=== PATIENT | male | born 1970 | race Hispanic/Latino ===

== ENCOUNTER 2017-07-29 12:19 | Day surgery (SDC) | payer MEDICARE ==
--- NOTE | 2017-07-29 14:00 | Anesthesia Consultation ---
Anesthesia Consult and Med Hx Date of service: 07/29/17 - Airway Anesthetic Teeth Evaluation: Good ROM Head & Neck: Adequate Mental/Hyoid Distance: Adequate Mallampati Class: Class II Intubation Access Assessment: Probably Good - Pulmonary Exam CTA: Yes - Cardiac Exam Cardiac Exam: RRR - Pre-Operative Health Status ASA Pre-Surgery Classification: ASA2 Proposed Anesthetic Plan: General - Pulmonary Hx Smoking: No Hx Sleep Apnea: No (ESTELITA PRE SCREEN HIGH RISK) - Cardiovascular System Hx Hypertension: Yes (X 1 YR) - Central Nervous System Hx Back Pain: Yes (BACK PAIN WITH PAIN/WEAKNESS KHADAR LEGS) - Endocrine Hx Renal Disease: No Hx Hypothyroidism: No - Other Systems Hx Cancer: No
[2017-07-29] MEDS ORDERED: DILAUDID IV PRN (14:01)
[2017-07-29] MEDS ORDERED: ZOFRAN IV PRN (14:01)
--- NOTE | 2017-07-29 14:01 | Anesthesia Day of Surgery ---
Anesthesia Day of Surgery - Day of Surgery Patient Examined: Yes Patient H&P Reviewed: Yes Patient is NPO: Yes
[2017-07-29] MEDS ORDERED: SUBLIMAZE ONE ×2 (14:14→15:37)
[2017-07-29] MEDS ORDERED: DIPRIVAN 10 MG/ML IV ONE (14:15)
[2017-07-29] MEDS ORDERED: ANCEF/STERILE WATER 2 GM/20 ML IV NR (14:17)
[2017-07-29] MEDS ORDERED: ZEMURON IV ONE (14:31)
[2017-07-29] MEDS ORDERED: XYLOCAINE MPF 2% ONE (14:31)
[2017-07-29] MEDS ORDERED: PEPCID IV NR (15:00)
[2017-07-29] MEDS ORDERED: LACTATED RINGERS 1,000 ML IV SCH (15:00)
[2017-07-29] MEDS ORDERED: VERSED IV NR (15:00)
[2017-07-29] MEDS ORDERED: ZOFRAN ONE (15:16)
[2017-07-29] MEDS ORDERED: ROBINUL ONE ×2 (15:16)
[2017-07-29] MEDS ORDERED: NEOSTIGMINE ONE (15:16)
[2017-07-29] MEDS ORDERED: WATER FOR IRRIG STERILE IR ONE (15:27)
[2017-07-29] MEDS ORDERED: OMNIPAQUE (300 MG) IR ONE (15:27)
[2017-07-29] MEDS ORDERED: BREVIBLOC IV ONE (15:46)
--- NOTE | 2017-07-29 15:54 | Short Stay Summary ---
Short Stay Documentation Date of service: 07/29/17 - History H&P: obtained from office - Allergies and Medications Current Medications: Allergies aspirin Allergy (Verified 07/27/17 17:51) Rash Home Medications Medication Instructions Recorded Confirmed Last Taken Type Ciprofloxacin HCl [Cipro] 500 mg PO BID 07/27/17 07/27/17 07/29/17 10:00 History Esomeprazole Magnesium [NexIUM] 40 mg PO QDAY 07/27/17 07/29/17 07/28/17 History Losartan [Cozaar] 25 mg PO QDAY 07/27/17 07/27/17 07/29/17 10:00 History Venlafaxine HCl [Venlafaxin ER] 75 mg PO QDAY 07/27/17 07/29/17 07/28/17 History oxyCODONE /ACETAMINOPHEN [Percocet 1 tab PO Q6HR PRN 07/27/17 07/29/17 07/27/17 History 5/325] traMADol [Ultram] 50 mg PO Q4HR PRN 07/27/17 07/29/17 07/27/17 History Active Medications Cefazolin Sodium (Ancef/Sterile Water 2 Gm/20 Ml) 2 gm IV PREOP NR Stop: 07/29/17 16:00 Famotidine (Pepcid) 20 mg IV PREOP NR Stop: 07/29/17 23:59 Last Admin: 07/29/17 14:25 Dose: 20 mg Hydromorphone HCl (Dilaudid) 0.5 mg IV Q10MIN PRN PRN Reason: Pain , Severe (7-10) Stop: 07/29/17 23:59 Lactated Ringer's (Lactated Ringers) 1,000 mls @ 100 mls/hr IV DIRECT RAFFAELE Last Admin: 07/29/17 14:22 Dose: 100 mls/hr Midazolam HCl (Versed) 2 mg IV PREOP NR Stop: 07/29/17 23:59 Last Admin: 07/29/17 14:23 Dose: 2 mg Ondansetron HCl (Zofran) 4 mg IV ONCE PRN PRN Reason: Nausea And Vomiting - Brief post op/procedure progress note Date of procedure: 07/29/17 Pre-op diagnosis: rt ureteral stone Post-op diagnosis: same Procedure: cysto, rpg, rt ureteroscopy stent (impacted stone) Anesthesia: MONSTER Surgeon: CLIFTON JOHNSON Estimated blood loss: minimal Condition: stable - Hospital course Hospital course: percocet / cipro on chart - Disposition Condition at discharge: Stable Disposition: DC-01 TO HOME OR SELFCARE Short Stay Discharge Plan Follow up with: JASMEET VEGA MD [Primary Care Provider] - 7 Days
[2017-07-29 17:49] VITALS: BP 133/77
--- NOTE | 2017-07-29 20:52 | Operative Report ---
PREOPERATIVE DIAGNOSIS: Right proximal ureteral stone. POSTOPERATIVE DIAGNOSES: Right proximal ureteral stone, (impacted stone). PROCEDURE PERFORMED: Cystoscopy, bilateral retrograde pyelograms, right ureteroscopy, stone manipulation, double-J stent (6-[place] 24 cm with a short internal string). SURGEON: Juan Diego Jiménez MD ANESTHESIA: General. ESTIMATED BLOOD LOSS: Minimal. FLUIDS: Crystalloid. COMPLICATIONS: No complications. INDICATIONS: This patient is a 47-year-old gentleman seen in the office for right flank pain, gross hematuria. CT of abdomen and pelvis revealed a 6 mm proximal ureteral stone. Discussed options. He agreed to proceed with surgical intervention. DESCRIPTION OF PROCEDURE: The patient was taken to the operative suite, placed in a supine position. After adequate general anesthesia, placed in a dorsal lithotomy position, prepped and draped in a sterile fashion. Pancystourethroscopy was performed with 22-[place] Storz cystoscope. The patient actually had a mild proximal urethral stricture, which could be traversed with the 22-[place] scope without difficulty. Prostate nonobstructing. Bladder, no tumors or stones were noted. Bilateral retrograde pyelograms were obtained with an 8-[place] Jackson catheter and 8 mL of contrast. No filling defects on the left . Right side, obvious stone in the proximal ureter. Two 0.035 Glidewires were placed up the right ureter under fluoroscopic guidance. Ureteroscopy, rigid ureteroscopy was performed. Stone could be partially visualized with edema and blood. Attempts to engage the stone were unsuccessful. I then used a flexible ureteroscope and again could not fully visualized or engage the stone due to edema and blood. At that point, I elected to place a 6-[place] 24 cm double-J stent with a short internal string. Bladder was drained. He was extubated. Rectal exam was benign. He will go home on Percocet, Cipro. This will be a staged procedure. We will proceed with elective lithotripsy. JOB# [id number] [facility]
--- NOTE | 2017-07-31 07:58 | Fluoroscopy Report ---
FLUOROSCOPY RETROGRADE UROGRAPHY: HISTORY: Calculus of ureter. FINDINGS: Fluoroscopy was provided by radiology during retrograde urography by the urologist. 9 fluoroscopic images were captured. The left retrograde pyelogram was normal. A filling defect consistent with a stone was identified in the proximal right ureter. Subsequent images demonstrate placement of a right ureteral stent which adequately drains the right renal collecting system. A right ureteral stent was placed which adequately drains the collecting system on the final image. Right ureteroscopy was performed per the operative note. IMPRESSION: Right ureteral calculus. Right ureteral stent placement.
== END 2017-07-29 17:32 | disposition home or self-care (01) ==
LOC: OR 12:19
PROVIDERS: ATTEND Urology
DX: N20.1 Calculus of ureter (principal); I10 Essential (primary) hypertension; Z88.5 Allergy status to narcotic agent
CPT/HCPCS: 52330; 52332; 74420; A4217; C1758; C1769; C2617; J0690; J2250; J2405; J2704; J2710; J3010; J7120; Q9967

== ENCOUNTER 2017-07-29 21:57 | Emergency (ER) | payer MEDICARE ==
[2017-07-29 22:27] VITALS: BP 128/83
[2017-07-30 00:27] LABS: Basophils % (Auto) 0.2 % (0.0-1.8); Eosinophils % (Auto) 0.2 % (0.0-4.3); Hematocrit 45.6 % (35.5-45.6); Hemoglobin 15.7 gm/dl (11.8-15.2); Lymphocytes # (Auto) 1.1 K/mm3 (1.2-5.4); Lymphocytes % (Auto) 11.4 % (13.4-35.0); Mean Corpuscular HGB Conc 34 % (32-34); Mean Corpuscular Hemoglobin 30 pg (28-32); Mean Corpuscular Volume 88 fl (84-94); Monocytes # (Auto) 0.4 K/mm3 (0.0-0.8); Monocytes % (Auto) 4.1 % (0.0-7.3); Platelet Count 168 K/mm3 (140-440); Red Blood Count 5.19 M/mm3 (3.65-5.03); Red Cell Distribution Width 13.7 % (13.2-15.2)
[2017-07-30 00:41] LABS: Alanine Aminotransferase 22 units/L (7-56); Albumin 4.4 g/dL (3.9-5); BUN/Creatinine Ratio 17; Blood Urea Nitrogen 12 mg/dL (9-20); Calcium 9.2 mg/dL (8.4-10.2); Hemolysis Index 42; Lipase 18 units/L (13-60)
[2017-07-30 01:40] LABS: Bilirubin,Urine NEG (Negative); Blood,Urine LG (Negative); Color,Urine Yellow (Yellow); Hyaline Casts,Urine 7 /LPF; Mucus,Urine 1+ /HPF; Urobilinogen,Urine < 2.0 mg/dL (<2.0)
[2017-07-30 01:48] LABS: RBC,Urine > 182.0 /HPF (0.0-6.0)
== END 2017-07-29 22:30 | disposition left against medical advice (07) ==
LOC: ED 21:57
DX: R10.9 Unspecified abdominal pain (principal); Z53.21 Procedure and treatment not carried out due to patient leaving prior to being seen by health care provider
CPT/HCPCS: 36415; 80053; 81001; 83690; 85025